=== PATIENT | male | born 1980 | race Two or more races ===

== ENCOUNTER → 2022-06-25 08:00 | Outpatient (BNVA) | payer MEDICARE, MEDICAID, SELFPAY | PROVIDERS: PCP Physician Assistant; Visit Provider Psychiatry & Neurology Neurology | DX: M54.2 Cervicalgia (principal); M62.838 Other muscle spasm; R20.0 Anesthesia of skin; R20.2 Paresthesia of skin | CPT/HCPCS: 99202 ==

== ENCOUNTER 2022-10-06 08:28 | Outpatient (AMB) | payer MEDICARE, MEDICAID, SELFPAY ==
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
[2022-10-06 08:39] VITALS: BP 112/86; PULSE 88; O2SAT 98
== END 2022-10-06 09:02 | disposition home or self-care (01) ==
PROVIDERS: Visit Provider Psychiatry & Neurology Neurology
DX: R20.0 Anesthesia of skin (principal); R20.2 Paresthesia of skin; M62.838 Other muscle spasm; M54.2 Cervicalgia
CPT/HCPCS: 99214

== ENCOUNTER → 2022-10-06 08:28 | Outpatient (BNVA) | payer MEDICARE, MEDICAID, SELFPAY | PROVIDERS: Visit Provider Psychiatry & Neurology Neurology | DX: R20.0 Anesthesia of skin (principal); R20.2 Paresthesia of skin; M54.2 Cervicalgia; M62.838 Other muscle spasm | CPT/HCPCS: 99212 ==

== ENCOUNTER → 2022-11-16 08:41 | Outpatient (REF) | payer MEDICARE, MEDICAID, SELFPAY | LOC: HO.SL 08:41 | PROVIDERS: PCP Nurse Practitioner Family; Visit Provider Psychiatry & Neurology Neurology | DX: G47.10 Hypersomnia, unspecified (principal); R06.83 Snoring | CPT/HCPCS: 95806 ==

== ENCOUNTER → 2022-11-16 08:53 | Outpatient (BNV) | payer MEDICARE, MEDICAID, SELFPAY | PROVIDERS: PCP Nurse Practitioner Family; Visit Provider Psychiatry & Neurology Neurology | DX: R06.83 Snoring (principal) | CPT/HCPCS: 95806 ==

== ENCOUNTER 2023-05-27 09:44 | Outpatient (REF) | payer MEDICARE, MEDICAID, SELFPAY ==
--- NOTE | 2023-05-27 10:05 | EMG_ITS ---
Bilateral median and ulnar motor and sensory studies were performed. Bilateral radial sensory studies were performed. Bilateral median and lateral antecubital sensory studies were performed and paraspinal muscles were tested with a needle. IMPRESSION: This study did not reveal any significant abnormality to suggest neuropathy, plexopathy, or radiculopathy. MD EMILY Gallego/CINTHYA / [id number]
== END 2023-05-27 09:45 | disposition home or self-care (01) ==
LOC: HO.NEURO 09:44
PROVIDERS: PCP Nurse Practitioner Family; Visit Provider Psychiatry & Neurology Neurology
DX: R20.0 Anesthesia of skin (principal); R20.2 Paresthesia of skin
CPT/HCPCS: 95886; 95913